=== PATIENT | male | born 1955 | race Caucasian/White ===

== ENCOUNTER 2016-10-12 11:32 | Emergency (ER) | payer BC ==
[~2016-10-12] VITALS: Ht 182.9 cm; Wt 120.0 kg
[~2016-10-12 11:32] MED LIST: ALBUTEROL SUL0.083 % IN; AMLODIPINE5 MG PO; ASPIRIN LOW DOS81 M2 PO; CALCIUM &MAG PO; HYDROCHLORO25 MG/TAB PO; LOPRESSOR 550 MG/TAB PO; LOPRESSOR50 MG PO; LOVASTATIN10 M1 PO; MAXIDE1 COMBO PO; MEDDOSEPAK PO; METOPROL TAR100 MG PO; MULTI VIT PO; NORVASC10 MG PO; PROVENTIL HFA IN; PROZAC20 MG PO; QVAR80 MCG IN; ZESTRIL10 MG PO
[2016-10-12 12:19] LABS: MEAN CELL VOLUME 92.2 fL CALC (80.0-100.0); MEAN CORPUSCULAR HGB 28.9 pG CALC (26.0-32.0); MEAN CORPUSCULAR HGB CONC 31.3 g/L CALC (32.0-36.0); NEUT# 5.6 thou/uL (1.82-7.42); RED BLOOD COUNT 1.8 mill/uL (4.70-6.10); RED CELL DISTRI WIDTH 15.2 % (11.5-15.5)
[2016-10-12 12:24] LABS: HEMATOCRIT 16.6 % (39.0-50.0); HEMOGLOBIN 5.2 g/dl (14.0-18.0)
[2016-10-12 12:33] LABS: ALBUMIN 3.7 g/dL (3.2-5.0); ALKALINE PHOSPHATASE 81 u/l (38-126); ANION GAP 17 (6-22 (CALC)); BILIRUBIN, TOTAL 0.6 mg/dL (0.0-1.4); BUN 18 mg/dL (9-20); BUN/CREATININE RATIO 15 (12-20 (CALC)); CALCIUM 8.6 mg/dL (8.4-10.2); CARBON DIOXIDE 24 mmol/l (22-30); CHLORIDE 101 mmol/l (95-108); CREATININE 1.2 mg/dL (0.7-1.3); GFR > 60 ML/MIN (>=60 (CALC)); GFR FOR AFR.AMER. > 60 ML/MIN (>=60 (CALC)); GLUCOSE 110 mg/dL (75-110); POTASSIUM 3.7 mmol/l (3.5-5.1); SGOT/AST 47 u/l (17-59); SGPT/ALT 48 u/l (21-72); SODIUM 138 mmol/l (137-146); TOTAL PROTEIN 6.4 g/dL (6.3-8.2)
[2016-10-12 12:45] LABS: MYOGLOBIN 175 ng/mL (0 - 121)
[2016-10-12 13:53] VITALS: BP 147/75
[2016-10-12 14:04] VITALS: BP 137/71
[2016-10-12 14:07] VITALS: BP 139/70
[2016-10-12 14:15] VITALS: BP 139/89
== END 2016-10-12 14:16 | disposition short-term general hospital (02) | DRG 377 ==
LOC: ED 11:32
PROVIDERS: Emergency Medicine
PROC: 30233N1 Transfusion of Nonautologous Red Blood Cells into Peripheral Vein, Percutaneous Approach (ICD-10-PCS; principal; 2016-10-12)
DX: K92.2 Gastrointestinal hemorrhage, unspecified (principal); J18.9 Pneumonia, unspecified organism; J44.1 Chronic obstructive pulmonary disease with (acute) exacerbation; Z72.0 Tobacco use; R06.02 Shortness of breath; R00.0 Tachycardia, unspecified
CPT/HCPCS: P9016

== ENCOUNTER 2017-10-13 05:55 | Day surgery (SDC) | payer MEDICARE ==
[~2017-10-13] VITALS: Ht 182.9 cm; Wt 104.3 kg
[~2017-10-13 05:55] MED LIST changes: +ANORO ELLIPTA 61 AER IN; +BENZONATATE200 MG PO; +DOCUSATE CAL240 MG PO; +FLUOXETINE20 MG PO; +LEVOTHYROXIN75 MCG PO; +MORPHINE SULFAT30 M2 PO; +OXYCODONE HCL15 MG PO; +PROVENTIL0.083 % IN; +SENNA-TABS8.6 MG PO; +XANAX1 MG PO
[2017-10-13 09:00] VITALS: BP 132/83
== END 2017-10-13 09:16 | disposition home or self-care (01) ==
LOC: ENDO 05:55 → ORM 17:15 → ENDO 17:50
PROVIDERS: ATTEND Internal Medicine Gastroenterology
PROC: 0DB98ZX Excision of Duodenum, Via Natural or Artificial Opening Endoscopic, Diagnostic (ICD-10-PCS; principal; 2017-10-13)
PROC: 0DB78ZX Excision of Stomach, Pylorus, Via Natural or Artificial Opening Endoscopic, Diagnostic (ICD-10-PCS; 2017-10-13)
PROC: 0DB58ZX Excision of Esophagus, Via Natural or Artificial Opening Endoscopic, Diagnostic (ICD-10-PCS; 2017-10-13)
PROC: 0DB48ZX Excision of Esophagogastric Junction, Via Natural or Artificial Opening Endoscopic, Diagnostic (ICD-10-PCS; 2017-10-13)
PROC: 0DBH8ZX Excision of Cecum, Via Natural or Artificial Opening Endoscopic, Diagnostic (ICD-10-PCS; 2017-10-13)
DX: K29.51 Unspecified chronic gastritis with bleeding (principal); K29.81 Duodenitis with bleeding; K64.8 Other hemorrhoids; K64.4 Residual hemorrhoidal skin tags; K22.8 Other specified diseases of esophagus; K31.9 Disease of stomach and duodenum, unspecified; K21.9 Gastro-esophageal reflux disease without esophagitis; I86.8 Varicose veins of other specified sites; K63.5 Polyp of colon; D64.9 Anemia, unspecified; I10 Essential (primary) hypertension; E78.00 Pure hypercholesterolemia, unspecified; J43.9 Emphysema, unspecified; C85.93 Non-Hodgkin lymphoma, unspecified, intra-abdominal lymph nodes; Z87.891 Personal history of nicotine dependence; Z85.118 Personal history of other malignant neoplasm of bronchus and lung; Z86.010 Personal history of colon polyps

== ENCOUNTER 2018-10-24 04:39 | Emergency (ER) | payer MEDICARE ==
[~2018-10-24] VITALS: Ht 182.9 cm; Wt 113.6 kg
--- NOTE | 2018-10-24 04:53 | NUR ---
BREATHING TREATMENT GIVEN. BREATHING TECH. FOR GOOD DEPOSITION TO THE LUNGS.
[2018-10-24 06:03] LABS: IMMATURE GRANULOCYTES 0.5 % (0.0-5.0); MEAN CORPUSCULAR HGB 30.5 pG CALC (26.0-32.0); MEAN CORPUSCULAR HGB CONC 32.5 g/L CALC (32.0-36.0); NEUT# 6.31 thou/uL (1.82-7.42); RED BLOOD COUNT 5.47 mill/uL (4.70-6.10); RED CELL DISTRI WIDTH 13.4 % (11.5-15.5)
[2018-10-24 06:04] LABS: HEMATOCRIT 51.4 % (39.0-50.0); HEMOGLOBIN 16.7 g/dl (14.0-18.0)
[2018-10-24 06:16] LABS: ALBUMIN 3.9 g/dL (3.2-5.0); ALKALINE PHOSPHATASE 96 u/l (38-126); ANION GAP 16 (6-22 (CALC)); BILIRUBIN, TOTAL 0.7 mg/dL (0.0-1.4); BUN 13 mg/dL (8-23); BUN/CREATININE RATIO 13 (12-20 (CALC)); CARBON DIOXIDE 23 mmol/l (22-30); CHLORIDE 106 mmol/l (95-108); GFR > 60 ML/MIN (>=60 (CALC)); GFR FOR AFR.AMER. > 60 ML/MIN (>=60 (CALC)); SGOT/AST 47 u/l (19-48); SODIUM 140 mmol/l (137-146); TOTAL PROTEIN 6.7 g/dL (6.3-8.2)
[2018-10-24 06:28] LABS: MYOGLOBIN 127 ng/mL (0 - 121)
[2018-10-24 06:31] LABS: POTASSIUM 4.7 mmol/l (3.5-5.1)
--- NOTE | 2018-10-24 06:59 | NUR ---
[facility] called with mass like findings on cxr report. Relayed message to Ann-Marie Alvarenga at 0650 hrs.
[2018-10-24 07:00] LABS: URINE BILIRUBIN - DIPSTICK NEGATIVE (NEGATIVE); URINE BLOOD DIPSTICK NEGATIVE (NEGATIVE); URINE COLOR YELLOW; URINE GLUCOSE - DIPSTICK NEGATIVE (NEGATIVE); URINE KETONE NEGATIVE (NEGATIVE); URINE LEUK ESTERASE NEGATIVE (NEGATIVE); URINE NITRITE - DIPSTICK NEGATIVE (Negative); URINE PH 5.5 (4.5-8.0); URINE PROTEIN - DIPSTICK NEGATIVE (NEG-TRACE); URINE UROBILINOGEN - DIPSTICK 0.2 E.U./dL (0.2)
[2018-10-24] MEDS ORDERED: ZPAK PO (07:04)
[2018-10-24] MEDS ORDERED: MEDDOSEPAK PO (07:04)
[2018-10-24 07:15] VITALS: BP 127/83
== END 2018-10-24 07:29 | disposition home or self-care (01) ==
LOC: ED 04:39
PROVIDERS: Emergency Medicine
DX: J44.1 Chronic obstructive pulmonary disease with (acute) exacerbation (principal); C34.91 Malignant neoplasm of unspecified part of right bronchus or lung; C85.90 Non-Hodgkin lymphoma, unspecified, unspecified site; F17.220 Nicotine dependence, chewing tobacco, uncomplicated

== ENCOUNTER 2020-12-22 13:44 | Emergency (ER) | payer MEDICARE ==
[~2020-12-22] VITALS: Ht 182.9 cm; Wt 115.9 kg
[~2020-12-22 13:44] MED LIST changes: +MS CONTIN30 MG PO; +OXYCODONE20 M1 PO; +WELLBUTRIN100 M2 PO; +ZPAK PO
[2020-12-22 14:24] LABS: HEMATOCRIT 46.1 % (39.0-50.0); HEMOGLOBIN 14.9 g/dl (14.0-18.0); IMMATURE GRANULOCYTES 0.6 % (0.0-5.0); MEAN CORPUSCULAR HGB 29.7 pG CALC (26.0-32.0); MEAN CORPUSCULAR HGB CONC 32.3 g/dL CAL (32.0-36.0); NEUT# 12.03 thou/uL (1.82-7.42); RED BLOOD COUNT 5.01 mill/uL (4.70-6.10); RED CELL DISTRI WIDTH 13.5 % (11.5-15.5)
[2020-12-22] MEDS ORDERED: WIXELA INHUB 101 AER (14:32)
[2020-12-22 14:37] LABS: ALBUMIN 4.1 g/dL (3.2-5.0); ANION GAP 14 (6-22 (CALC)); BUN 15 mg/dL (8-23); BUN/CREATININE RATIO 16 (12-20 (CALC)); CARBON DIOXIDE 27 mmol/l (22-30); CHLORIDE 98 mmol/l (95-108); CREATININE 0.9 mg/dL (0.7-1.3); GFR > 60 ML/MIN (>=60 (CALC)); GFR FOR AFR.AMER. > 60 ML/MIN (>=60 (CALC)); POTASSIUM 4.3 mmol/l (3.5-5.1); SGOT/AST 50 u/l (19-48); SODIUM 135 mmol/l (137-146); TOTAL PROTEIN 8.2 g/dL (6.3-8.2)
[2020-12-22 14:38] LABS: ALKALINE PHOSPHATASE 171 u/l (38-126); BILIRUBIN, TOTAL 1.1 mg/dL (0.0-1.4)
[2020-12-22 16:22] VITALS: BP 131/64
== END 2020-12-22 16:22 | disposition left against medical advice (07) ==
LOC: ED 13:44
PROVIDERS: Family Medicine
DX: R91.8 Other nonspecific abnormal finding of lung field (principal); J44.9 Chronic obstructive pulmonary disease, unspecified; E66.9 Obesity, unspecified; Z68.34 Body mass index [BMI] 34.0-34.9, adult; Z85.118 Personal history of other malignant neoplasm of bronchus and lung; Z91.19 Patient's noncompliance with other medical treatment and regimen; Z99.81 Dependence on supplemental oxygen; Z20.822 Contact with and (suspected) exposure to COVID-19
CPT/HCPCS: Q9967

== ENCOUNTER 2022-11-07 07:16 | Day surgery (SDC) | payer MEDICARE ==
[~2022-11-07 07:16] MED LIST changes: +LOSARTAN POTAS100 MG PO; +TRELEGY ELLIPTA1 AER IN; +WIXELA INHUB 101 AER; +[UNRECOGNIZED DRUG - OTHER]
[2022-11-07] MEDS ORDERED: TRELEGY ELLIPTA1 AE1 IN (07:44)
[2022-11-07 13:17] VITALS: BP 136/83
== END 2022-11-07 10:28 | disposition home or self-care (01) ==
LOC: ENDO 07:16 → ORM 12:15
PROVIDERS: ATTEND Internal Medicine Gastroenterology
PROC: 0DBK8ZX Excision of Ascending Colon, Via Natural or Artificial Opening Endoscopic, Diagnostic (ICD-10-PCS; principal; 2022-11-07)
PROC: 0DBH8ZX Excision of Cecum, Via Natural or Artificial Opening Endoscopic, Diagnostic (ICD-10-PCS; 2022-11-07)
PROC: 0DB48ZX Excision of Esophagogastric Junction, Via Natural or Artificial Opening Endoscopic, Diagnostic (ICD-10-PCS; 2022-11-07)
PROC: 0DB78ZX Excision of Stomach, Pylorus, Via Natural or Artificial Opening Endoscopic, Diagnostic (ICD-10-PCS; 2022-11-07)
DX: Z12.11 Encounter for screening for malignant neoplasm of colon (principal); D12.2 Benign neoplasm of ascending colon; D12.0 Benign neoplasm of cecum; K57.30 Diverticulosis of large intestine without perforation or abscess without bleeding; K64.8 Other hemorrhoids; K29.50 Unspecified chronic gastritis without bleeding; K22.70 Barrett's esophagus without dysplasia; K44.9 Diaphragmatic hernia without obstruction or gangrene; Z85.028 Personal history of other malignant neoplasm of stomach; Z86.010 Personal history of colon polyps; Z85.118 Personal history of other malignant neoplasm of bronchus and lung

== ENCOUNTER 2023-03-01 11:54 | Emergency (ER) | payer MEDICARE ==
[~2023-03-01] VITALS: Ht 182.9 cm; Wt 109.7 kg
[~2023-03-01 11:54] MED LIST changes: +TRELEGY ELLIPTA1 AE1 IN
[2023-03-01 12:20] VITALS: BP 144/91
[2023-03-01 12:30] VITALS: BP 143/95
[2023-03-01 12:46] VITALS: BP 102/83
[2023-03-01 12:58] VITALS: BP 102/83
== END 2023-03-01 12:50 | disposition home or self-care (01) ==
LOC: ED 11:54
DX: G89.4 Chronic pain syndrome (principal); F41.9 Anxiety disorder, unspecified; I10 Essential (primary) hypertension; J43.9 Emphysema, unspecified; C85.90 Non-Hodgkin lymphoma, unspecified, unspecified site; F17.200 Nicotine dependence, unspecified, uncomplicated; Z95.828 Presence of other vascular implants and grafts; Z85.118 Personal history of other malignant neoplasm of bronchus and lung

== ENCOUNTER 2023-03-04 11:25 | Emergency (ER) | payer MEDICARE ==
[~2023-03-04] VITALS: Ht 182.9 cm; Wt 110.0 kg
[2023-03-04] VITALS (26 sets, daily range): BP systolic 77–124; BP diastolic 58–106
[2023-03-04 12:06] LABS: BASO% 0.1 % (0-3); HEMATOCRIT 44.7 % (39.0-50.0); HEMOGLOBIN 15.1 g/dl (14.0-18.0); IMMATURE GRANULOCYTES 0.5 % (0.0-5.0); LYMPH% 11.7 % (15-41); MEAN CELL VOLUME 91.4 fL CALC (80.0-100.0); MEAN CORPUSCULAR HGB 30.9 pG CALC (26.0-32.0); MEAN CORPUSCULAR HGB CONC 33.8 g/dL CAL (32.0-36.0); MONO% 11.8 % (2-13); NEUT# 7.1 thou/uL (1.82-7.42); NEUT% 75.9 % (42-76); RED BLOOD COUNT 4.89 mill/uL (4.70-6.10); RED CELL DISTRI WIDTH 14.4 % (11.5-15.5)
[2023-03-04 12:19] LABS: ALBUMIN 4.2 g/dL (3.2-5.0); CREATININE 1.8 mg/dL (0.7-1.3); TOTAL PROTEIN 7.6 g/dL (6.3-8.2)
[2023-03-04 12:21] LABS: INTERNATIONAL NORMALIZED RATIO 1.1 RATIO (0.7-1.3); PROTHROMBIN TIME 10.7 SECONDS (9.0-12.5)
[2023-03-04 12:22] LABS: BILIRUBIN, TOTAL 1.6 mg/dL (0.2-1.3); POTASSIUM 3.4 mmol/l (3.5-5.1)
[2023-03-04] MEDS ORDERED: GABAPENTIN100 MG PO (16:05)
[2023-03-04] MEDS ORDERED: MORPHINE SUL60 MG PO (16:06)
[2023-03-04] MEDS ORDERED: LEVOTHYROXIN75 MC1 PO (16:06)
[2023-03-04] MEDS ORDERED: PREDNISONE50 MG PO (17:05)
[2023-03-04] MEDS ORDERED: LEVAQUIN750 M1 PO (17:05)
[2023-03-04] MEDS ORDERED: IPRATROPIU0.5 MG/3 M IN (17:05)
== END 2023-03-04 17:24 | disposition home or self-care (01) ==
LOC: ED 11:25
PROVIDERS: Emergency Medicine
DX: J18.9 Pneumonia, unspecified organism (principal); J44.0 Chronic obstructive pulmonary disease with (acute) lower respiratory infection; G89.4 Chronic pain syndrome; I10 Essential (primary) hypertension; C85.90 Non-Hodgkin lymphoma, unspecified, unspecified site; F17.200 Nicotine dependence, unspecified, uncomplicated; Z95.828 Presence of other vascular implants and grafts; Z85.118 Personal history of other malignant neoplasm of bronchus and lung; Z20.822 Contact with and (suspected) exposure to COVID-19

== ENCOUNTER 2023-08-21 18:37 | Emergency (ER) | payer MEDICARE ==
[~2023-08-21] VITALS: Ht 182.9 cm; Wt 109.1 kg
[~2023-08-21 18:37] MED LIST changes: +GABAPENTIN100 MG PO; +IPRATROPIU0.5 MG/3 M IN; +LEVAQUIN750 M1 PO; +LEVOTHYROXIN75 MC1 PO; +MORPHINE SUL60 MG PO; +PREDNISONE50 MG PO
[2023-08-21] MEDS ORDERED: HYDROmorphone HCL 2 MG/AMP IM ONE (19:35)
[2023-08-21] MEDS ORDERED: PROMETHAZINE HCL 25 MG/ML AMP IM ONE (19:35)
[2023-08-21] MEDS ORDERED: ACETAMINOPHEN 500 MG TAB PO ONE (19:35)
[2023-08-21] MEDS ORDERED: Diph, Acellular Pertussis, Tet 0.5 ML/VIAL (Tdap) SDV IM ONE (19:35)
[2023-08-22 01:30] VITALS: BP 122/90
== END 2023-08-22 01:30 | disposition home or self-care (01) ==
LOC: ED 18:37
PROC: 0HQ1XZZ Repair Face Skin, External Approach (ICD-10-PCS; principal; 2023-08-21)
DX: S01.112A Laceration without foreign body of left eyelid and periocular area, initial encounter (principal); S20.212A Contusion of left front wall of thorax, initial encounter; S53.401A Unspecified sprain of right elbow, initial encounter; S61.512A Laceration without foreign body of left wrist, initial encounter; I10 Essential (primary) hypertension; J43.9 Emphysema, unspecified; F17.200 Nicotine dependence, unspecified, uncomplicated; W10.9XXA Fall (on) (from) unspecified stairs and steps, initial encounter; Y92.009 Unspecified place in unspecified non-institutional (private) residence as the place of occurrence of the external cause; Z85.118 Personal history of other malignant neoplasm of bronchus and lung

== ENCOUNTER 2023-11-07 09:25 | Emergency (ER) | payer MEDICARE ==
[2023-11-07] VITALS (12 sets, daily range): BP systolic 105–129; BP diastolic 64–87
[~2023-11-07] VITALS: Ht 182.9 cm; Wt 122.0 kg
[2023-11-07] MEDS ORDERED: MORPHINE SULFATE 4 MG/ML VIAL IV ONE ×2 (09:50→12:55)
[2023-11-07] MEDS ORDERED: ONDANSETRON HCl 4 MG/2 ML SDV IV ONE (09:50)
[2023-11-07 10:02] LABS: BASO% 0.3 % (0-3); EOS% 1.1 % (0-8); HEMATOCRIT 44.2 % (39.0-50.0); HEMOGLOBIN 13.7 g/dl (14.0-18.0); IMMATURE GRANULOCYTES 0.2 % (0.0-5.0); LYMPH% 7.7 % (15-41); MEAN CELL VOLUME 89.1 fL CALC (80.0-100.0); MEAN CORPUSCULAR HGB 27.6 pG CALC (26.0-32.0); MONO% 8.4 % (2-13); NEUT# 10.11 thou/uL (1.82-7.42); NEUT% 82.3 % (42-76); RED BLOOD COUNT 4.96 mill/uL (4.70-6.10); RED CELL DISTRI WIDTH 17.3 % (11.5-15.5)
[2023-11-07 10:08] LABS: ANION GAP 11 (6-22 (CALC)); BUN 14 mg/dL (8-23); BUN/CREATININE RATIO 12 (12-20 (CALC)); CARBON DIOXIDE 24 mmol/l (22-30); CHLORIDE 108 mmol/l (95-108); CREATININE 1.2 mg/dL (0.7-1.3); ESTIMATED GFR 67 ML/MIN (>=90 (CALC)); POTASSIUM 4.1 mmol/l (3.5-5.1); SGOT/AST 29 u/l (19-48); SODIUM 139 mmol/l (137-146); TOTAL PROTEIN 6.9 g/dL (6.3-8.2)
[2023-11-07 10:14] LABS: ALKALINE PHOSPHATASE 104 u/l (38-126); BILIRUBIN, TOTAL 0.9 mg/dL (0.2-1.3)
== END 2023-11-07 13:44 | disposition home or self-care (01) ==
LOC: ED 09:25
PROVIDERS: Family Medicine
DX: S42.022A Displaced fracture of shaft of left clavicle, initial encounter for closed fracture (principal); S80.02XA Contusion of left knee, initial encounter; R07.81 Pleurodynia; R91.8 Other nonspecific abnormal finding of lung field; I10 Essential (primary) hypertension; J43.9 Emphysema, unspecified; F17.200 Nicotine dependence, unspecified, uncomplicated; W19.XXXA Unspecified fall, initial encounter; Y92.009 Unspecified place in unspecified non-institutional (private) residence as the place of occurrence of the external cause; Z85.72 Personal history of non-Hodgkin lymphomas